=== PATIENT | female | born 1945 | race Caucasian/White ===

== ENCOUNTER 2019-07-21 14:08 | Emergency (ER) | payer MEDICARE, BC, OTHER ==
--- NOTE | 2019-07-21 15:51 | RAD ---
SINGLE VIEW OF THE CHEST: COMPARISON: None. HISTORY: Dry cough and sore throat. FINDINGS: Single view of the chest shows a normal sized cardiomediastinal silhouette. There is no evidence of c onsolidation, mass, or pleural effusion. The bones are unremarkable. IMPRESSION: No evidence of acute cardiopulmonary disease. POS: [facility]
[2019-07-22 10:58] LABS: SARS-CoV-2 MS2 Positive; SARS-CoV-2 N Gene Negative; SARS-CoV-2 S Gene Negative; SARS-CoV-2 orf1ab Negative
== END 2019-07-21 16:00 | disposition home or self-care (01) ==
LOC: ERS 14:08
DX: J02.9 Acute pharyngitis, unspecified (principal); R05 Cough; Z20.828 Contact with and (suspected) exposure to other viral communicable diseases; E78.5 Hyperlipidemia, unspecified; K21.9 Gastro-esophageal reflux disease without esophagitis; I10 Essential (primary) hypertension; Z79.899 Other long term (current) drug therapy
CPT/HCPCS: 71045; 99283; U0003; 87635